=== PATIENT | male | born 1975 ===

== ENCOUNTER 2018-04-11 15:16 | Emergency (ER) | payer OTHER ==
[2018-04-11 15:27] VITALS: O2SAT 97
--- NOTE | 2018-04-11 16:21 | C.PDOC ---
History Of Present Illness This is a 42 year old male with no significant medical history who presents for right shoulder pain x 2 months. Patient reports there was not any triggering event that occurred 2 months ago. Patient's job requires some heavy lifting, and sometimes overhead. He reports he started to noticed some weakness and pain with certain motions. Overtime the decrease in range of motion, worsened, as well as worsening pain. The pain keeps the patient up at night at times. He has not tried anything over the counter, because he does not like to take pills. Denied any associated fever, chills, decrease in sensation. Time Seen by Provider: 04/11/18 15:31 Chief Complaint (Nursing): Upper Extremity Problem/Injury History Per: Patient History/Exam Limitations: no limitations Onset/Duration Of Symptoms: Days, Waxing/Waning, Gradual Current Symptoms Are (Timing): Still Present Quality: Aching, "Pain" Severity: Moderate Pain Scale Rating Of: 6 Exacerbating Factor(s): Movement Past Medical History Vital Signs: Last Vital Signs Temp 98.4 F 04/11/18 15:23 Pulse 56 L 04/11/18 15:23 Resp 17 04/11/18 15:23 BP 136/82 04/11/18 15:23 Pulse Ox 97 04/11/18 15:23 Family History: States: No Known Family Hx - Social History Hx Alcohol Use: No Hx Substance Use: No - Immunization History Hx Tetanus Toxoid Vaccination: Yes Hx Influenza Vaccination: No Hx Pneumococcal Vaccination: No Review Of Systems Constitutional: Negative for: Fever, Chills Musculoskeletal: Positive for: Shoulder Pain (right shoulder ). Negative for: Neck Pain, Back Pain, Hand Pain Skin: Negative for: Rash Neurological: Positive for: Weakness Physical Exam - Physical Exam Appears: Well, Non-toxic, No Acute Distress Skin: Normal Color, Warm, Dry Head: Atraumatic, Normacephalic Cardiovascular: Rhythm Regular Respiratory: Normal Breath Sounds Back: Normal Inspection, No Vertebral Tenderness, No Paraspinal Tenderness Extremity: Tenderness (TTP near the acromiom, pain worse with internal and external rotation, limited active range of motion due to pain, pain illicited with passive ROM. Motor strength +5, sensation intact, +2 radial pulse, no pain illicited during supination.) ED Course And Treatment O2 Sat by Pulse Oximetry: 97 Medical Decision Making Medical Decision Making: Internal derangement of right shoulder, partial SLAP tear? - Limited ROM - Xray of shoulder - Will reassess -- Xray reviewed by me, no obvious fractures, bone deformities, or abnormalities Disposition Doctor Will See Patient In The: Office Counseled Patient/Family Regarding: Studies Performed, Need For Followup - Disposition Referrals: [facility] [Outside] Trell Mclean III, MD [Staff Provider] - Disposition: HOME/ ROUTINE Disposition Time: 17:32 Condition: GOOD Additional Instructions: Please take motrin or tylenol as needed for pain. Please refrain from any heavy lifting or movement overhead. Please make an appointment with the [facility] to follow up with Orthopedics to have your right shoulder further evaluated. Please take care and be well. --- Por favor, tome Motrin o Tylenol segn sea necesario para el dolor. Por favor, abstngase de levantar cargas pesadas o movimientos. Por favor, fam deepa chang con la cln[place] vec[place] para hacer un seguimiento con la ortopedia para que aguilar hombro derecho sea evaluado. Por favor, tenga cuidado y est lorraine. Forms: [facility] (Korean) - POA Present On Arrival: None - Clinical Impression Clinical Impression: Bursitis, Tendonitis
--- NOTE | 2018-04-11 17:34 | RAD ---
PROCEDURE: Radiographs of the Right Shoulder HISTORY: right shoulder pain, limited ROM COMPARISON: None available. FINDINGS: BONES: No acute displaced fracture. The distal clavicle and underlying ribs appear intact. JOINTS: No acute dislocation. SOFT TISSUES: Soft tissues appear unremarkable. No evidence of radiopaque foreign body. IMPRESSION: No acute displaced fracture or dislocation evident. If symptoms persist or if there is continued clinical concern, x-ray follow-up in 7-10 days should be considered.
[2018-04-11 17:50] VITALS: BP 125/78; PULSE 58; RESP 18; TEMP 98.1
== END 2018-04-11 17:41 | disposition home or self-care (01) ==
LOC: C.ER 15:16
DX: M75.51 Bursitis of right shoulder (principal); M77.8 Other enthesopathies, not elsewhere classified